=== PATIENT | female | born 1980 | race Caucasian/White ===

== ENCOUNTER 2024-01-17 16:50 | Emergency (ER) | payer OTHER, SELFPAY ==
[2024-01-17 16:52] VITALS: BP 111/98
[2024-01-17 16:56] VITALS: BMI 35.1
[2024-01-17 17:00] VITALS: BP 123/104
[2024-01-17 17:31] VITALS: BP 141/75
[2024-01-17 18:00] VITALS: BP 129/89
[2024-01-17] MEDS: ATIVAN 0.5 MG PO (18:02)
[2024-01-17 18:17] LABS: % Basophils 0.5 % (0-2); % Eosinophils 0.5 % (0-6); % Immature Granulocytes 0.2 % (0-0.5); % Monocytes 4.7 % (1.7-9.3); % Neutrophils 80.1 % (42.2-75.2); Absolute Basophils 0.1 10^3/uL (0-0.2); Absolute Eosinophils 0.1 10^3/uL (0-0.7); Absolute Lymphocytes 1.7 10^3/uL (1.2-3.4); Absolute Monocytes 0.6 10^3/uL (0.1-0.6); Absolute Neutrophils 9.8 10^3/uL (1.4-6.5); Hemoglobin 11.3 g/dL (12.0-16.0); Mean Corp Hgb Conc. 34.2 g/dL (33.0-37.0); Mean Corpuscular Hgb 28.2 pg (27.0-31.0); Mean Corpuscular Volume 82.3 fL (81.0-99.0); Mean Platelet Volume 9.7 fL (7.4-10.4); Nucleated Red Blood Cells % 0 %; Platelet Count 308 10^3/uL (130-400); Red Blood Cell Count 4.01 10^6/uL (4.20-5.40); White Blood Cell Count 12.3 10^3/uL (4.8-10.8)
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
[2024-01-17 18:37] LABS: ALT (SGPT) 30 U/L (0-35); AST (SGOT) 27 U/L (14-36); Albumin 4.5 g/dl (3.5-5.0); Alkaline Phosphatase 75 U/L (38-126); Blood Urea Nitrogen 14 mg/dl (7-17); Calcium 9.8 mg/dl (8.4-10.2); Carbon Dioxide 22 mmol/L (22-30); Chloride 104 mmol/L (98-107); Estimated Creatinine Clearance 115 ml/min; Glucose 138 mg/dl (70-99); Potassium 4.1 mmol/L (3.5-5.1); Sodium 141 mmol/L (135-145); Total Bilirubin 0.3 mg/dl (0.2-1.3); Total Protein 7.3 g/dl (6.3-8.2); eGFR > 60.00
[2024-01-17 18:42] LABS: Troponin I < 0.012 ng/ml
== END 2024-01-17 19:03 | disposition home or self-care (01) ==
LOC: EMR 16:50
PROVIDERS: EMERGENCY PHYSICIAN Student in an Organized Health Care Education/Training Program; FAMILY PHYSICIAN Family Medicine Sports Medicine
DX: F41.0 Panic disorder [episodic paroxysmal anxiety] (principal); R00.2 Palpitations; V89.2XXA Person injured in unspecified motor-vehicle accident, traffic, initial encounter; Z63.8 Other specified problems related to primary support group
CPT/HCPCS: 99284; 80053; 84484; 85025; 93005